=== PATIENT | male | born 1955 | race Caucasian/White ===

== ENCOUNTER → 2019-09-18 | Outpatient (CLI) | payer OTHER ==
--- NOTE | 2019-09-18 11:53 | Diagnostic Imaging Report ---
INDICATION: Dysphagia. TECHNIQUE: The study was performed in conjunction with speech pathology. Videofluoroscopy was performed during the swallowing of barium in multiple consistencies. The patient ingested thin liquid as well as puree, mechanical soft as well as ground meat and cracker consistency. 1 minute and 4 seconds of fluoroscopic time was utilized. FINDINGS: Oral phase is unremarkable. There is normal epiglottic tilt and laryngeal elevation. No laryngeal penetration or aspiration was observed. Postsurgical changes of ACDF at the C3-C4 level are noted. There are some degenerative changes at C4-C5 level with anterior osteophyte formation. IMPRESSION: Unremarkable modified barium swallow, without evidence of laryngeal penetration or aspiration. Dictated by: Dictated on workstation # [id number]
== END ==
LOC: RAD 09:39
PROVIDERS: ATTEND Otolaryngology Otolaryngology/Facial Plastic Surgery
DX: R13.10 Dysphagia, unspecified (principal); Z98.1 Arthrodesis status
CPT/HCPCS: 74230

== ENCOUNTER → 2021-06-06 | Outpatient (CLI) | payer OTHER ==
[~2021-06-06] MED LIST: CATHETER FLUSH 10 ML SYR IV PRN; HOLD METFORMIN - RECEIVED CONTRAST 20 ML VIAL IV SCH; IOHEXOL 350 MG/ML 150 ML (OMNIPAQUE 350) VIAL IV ONE; NS 100 ML (IVPB) BAG IV ONE
[2021-06-06 13:06] LABS: CREATININE SERUM 1.33 MG/DL (0.60-1.30)
[2021-06-06 13:14] LABS: ALBUMIN 4.2 GM/DL (3.2-4.5); BILIRUBIN,TOTAL 0.7 MG/DL (0.1-1.0); CALCIUM 9.6 MG/DL (8.5-10.1); TOTAL PROTEIN 7.2 GM/DL (6.4-8.2)
[2021-06-06 13:20] LABS: POTASSIUM 4.4 MMOL/L (3.6-5.0)
--- NOTE | 2021-06-06 15:21 | Diagnostic Imaging Report ---
PROCEDURE: CT angiography of the chest with contrast. TECHNIQUE: Multiple contiguous axial images were obtained through the chest after uneventful bolus administration of intravenous contrast. 3D reconstructed CTA MIP acquisitions were also performed. Auto Exposure Controls were utilized during the CT exam to meet ALARA standards for radiation dose reduction. INDICATION: COVID-19, shortness of air. COMPARISON: None. FINDINGS: The pulmonary arteries are diagnostic to the segmental level. No filling defect is seen to indicate a pulmonary embolus. The heart is normal in size. There is no evidence of right heart strain. There is no pericardial effusion. No mediastinal adenopathy is seen. There is no axillary adenopathy. The aorta is normal in caliber. There is mild aortic atherosclerosis. There is moderate groundglass opacity in the lungs bilaterally, particularly in the lower lobes. There is no pleural effusion or pneumothorax. No central endobronchial lesion is seen. No acute osseous abnormality is seen. There are flowing anterior osteophytes, consistent with diffuse idiopathic skeletal hyperostosis. Imaged portions of the upper abdomen demonstrate no acute abnormality. IMPRESSION: 1. No pulmonary embolus. 2. Bilateral groundglass opacities, consistent with infection. Dictated by: Dictated on workstation # [id number]
== END ==
LOC: RAD FS 12:20
PROVIDERS: ATTEND Family Medicine
DX: U07.1 COVID-19 (principal)
CPT/HCPCS: 36415; 71275; 80053